=== PATIENT | male | born 1995 | race African-American/Black ===

== ENCOUNTER 2017-06-01 16:20 | Emergency (ER) | payer SELFPAY ==
--- NOTE | 2017-06-01 17:20 | ER ---
Nurse's Notes [facility] Name: Bertin Ferreira Age: 21 yrs Sex: Male : 1995 Arrival Date: 06/01/2017 Time: 16:23 Bed 15 Private MD: Diagnosis: Dental pain Presentation: 06/01 16:37 Presenting complaint: Patient states: "My teeth have been hurting for a while, but it lk1 got worser this morning.". Transition of care: patient was not received from another setting of care. Onset of symptoms was May 01, 2017. Care prior to arrival: None. 16:37 Method Of Arrival: Ambulatory lk1 16:37 Acuity: LIANA 5 lk1 Triage Assessment: 16:38 General: Appears in no apparent distress. Behavior is calm, cooperative, appropriate lk1 for age. Pain: Complains of pain in mouth Pain currently is 5 out of 10 on a pain scale. EENT: Reports pain in teeth in the morning when he wakes up, improves during the day, been happening almost a month. Historical: - Allergies: 16:38 No Known Allergies; lk1 - PMHx: 16:38 Asthma; lk1 - PSHx: 16:38 None; lk1 - Immunization history:: Adult Immunizations up to date. - Social history:: Smoking status: Patient uses tobacco products, smokes one pack cigarettes per day. Screenin:32 Abuse screen: Denies threats or abuse. Denies injuries from another. Nutritional jl7 screening: No deficits noted. Tuberculosis screening: No symptoms or risk factors identified. Fall Risk None identified. Assessment: 17:00 General: Appears in no apparent distress. uncomfortable, Behavior is calm, cooperative, jl7 appropriate for age. Pain: Complains of pain in upper right first bicuspid, upper right cuspid, upper left cuspid and upper left first bicuspid Pain currently is 5 out of 10 on a pain scale. Neuro: Level of Consciousness is awake, alert, obeys commands, Oriented to person, place, time, situation. Respiratory: Airway is patent Respiratory effort is even, unlabored, Respiratory pattern is regular, symmetrical. EENT: Oral mucosa is moist. Derm: Skin is pink, warm \\T\\ dry. Vital Signs: 16:39 BP 132 / 58; Pulse 79; Resp 14; Temp 98.5(O); Pulse Ox 99% on R/A; Weight 72.57 kg (R); lk1 Height 5 ft. 6 in. (167.64 cm) (R); Pain 5/10; 17:32 BP 130 / 60; Pulse 75; Resp 16 S; Pulse Ox 99% on R/A; jl7 16:39 Body Mass Index 25.82 (72.57 kg, 167.64 cm) lk1 ED Course: 16:23 Patient arrived in ED. rg4 16:37 Triage completed. lk1 16:39 Arm band placed on right wrist. lk1 16:45 Ila Kellogg FNP-C is PHCP. snw 16:45 Cheo Aguilar MD is Attending Physician. snw 17:23 Dora Adam, RN is Primary Nurse. jl7 17:32 Patient has correct armband on for positive identification. Bed in low position. Call jl7 light in reach. Side rails up X 1. Pulse ox on. NIBP on. 17:32 No provider procedures requiring assistance completed. Patient did not have IV access jl7 during this emergency room visit. Administered Medications: No medications were administered Outcome: 17:20 Discharge ordered by . snw 17:32 Discharged to home ambulatory. jl7 17:32 Condition: stable 17:32 Discharge instructions given to patient, Instructed on discharge instructions, follow up and referral plans. medication usage, Demonstrated understanding of instructions, follow-up care, medications, Prescriptions given X 2. 17:33 Patient left the ED. jl7 Signatures: Ila Kellogg FNP-C COMMERCIAL LOAN CLOSER-Csnw Cristine Gordon RN RN lk1 Sarah Sandoval 4 Dora Adam, KARYN RN jl7
--- NOTE | 2017-06-01 17:20 | EDPHYS ---
Physician Documentation [facility] Name: Bertin Ferreira Age: 21 yrs Sex: Male : 1995 Arrival Date: 06/01/2017 Time: 16:23 Bed 15 Private MD: ED Physician Cheo Aguilar HPI: 06/01 18:10 This 21 yrs old Black Male presents to ER via Ambulatory with complaints of Toothache. snw 18:10 The patient presents with pain. The problem is located in the upper left first bicuspid snw and upper left cuspid and upper right first bicuspid. Onset: The symptoms/episode began/occurred gradually. Duration: The symptoms are intermittent. Associated signs and symptoms: The patient has no apparent associated signs or symptoms. Severity of symptoms: At their worst the symptoms were moderate. The patient has experienced similar episodes in the past, multiple times, but today's symptoms are worse, more painful. The patient has not recently seen a physician. Historical: - Allergies: 16:38 No Known Allergies; lk1 - PMHx: 16:38 Asthma; lk1 - PSHx: 16:38 None; lk1 - Immunization history:: Adult Immunizations up to date. - Social history:: Smoking status: Patient uses tobacco products, smokes one pack cigarettes per day. ROS: 18:07 Constitutional: Negative for fever, chills, and weight loss, Eyes: Negative for injury, snw pain, redness, and discharge, ENT: Negative for injury, pain, and discharge, c/o intermittent upper teeth sensitivity and gingival bleeding Neck: Negative for injury, pain, and swelling, Cardiovascular: Negative for chest pain, palpitations, and edema, Respiratory: Negative for shortness of breath, cough, wheezing, and pleuritic chest pain, Abdomen/GI: Negative for abdominal pain, nausea, vomiting, diarrhea, and constipation, Back: Negative for injury and pain, : Negative for injury, bleeding, discharge, and swelling, MS/Extremity: Negative for injury and deformity, Skin: Negative for injury, rash, and discoloration, Neuro: Negative for headache, weakness, numbness, tingling, and seizure. Exam: 18:06 Constitutional: This is a well developed, well nourished patient who is awake, alert, snw and in no acute distress. Head/Face: Normocephalic, atraumatic. Eyes: Pupils equal round and reactive to light, extra-ocular motions intact. Lids and lashes normal. Conjunctiva and sclera are non-icteric and not injected. Cornea within normal limits. Periorbital areas with no swelling, redness, or edema. ENT: Nares patent. No nasal discharge, no septal abnormalities noted. Tympanic membranes are normal and external auditory canals are clear. Oropharynx with no redness, swelling, or masses, exudates, or evidence of obstruction, uvula midline. Mucous membranes moist. Neck: Trachea midline, no thyromegaly or masses palpated, and no cervical lymphadenopathy. Supple, full range of motion without nuchal rigidity, or vertebral point tenderness. No Meningismus. Chest/axilla: Normal chest wall appearance and motion. Nontender with no deformity. No lesions are appreciated. Cardiovascular: Regular rate and rhythm with a normal S1 and S2. No gallops, murmurs, or rubs. Normal PMI, no JVD. No pulse deficits. Respiratory: Lungs have equal breath sounds bilaterally, clear to auscultation and percussion. No rales, rhonchi or wheezes noted. No increased work of breathing, no retractions or nasal flaring. Abdomen/GI: Soft, non-tender, with normal bowel sounds. No distension or tympany. No guarding or rebound. No evidence of tenderness throughout. Back: No spinal tenderness. No costovertebral tenderness. Full range of motion. Skin: Warm, dry with normal turgor. Normal color with no rashes, no lesions, and no evidence of cellulitis. MS/ Extremity: Pulses equal, no cyanosis. Neurovascular intact. Full, normal range of motion. Neuro: Awake and alert, GCS 15, oriented to person, place, time, and situation. Cranial nerves II-XII grossly intact. Motor strength 5/5 in all extremities. Sensory grossly intact. Cerebellar exam normal. Normal gait. Vital Signs: 16:39 BP 132 / 58; Pulse 79; Resp 14; Temp 98.5(O); Pulse Ox 99% on R/A; Weight 72.57 kg (R); lk1 Height 5 ft. 6 in. (167.64 cm) (R); Pain 5/10; 17:32 BP 130 / 60; Pulse 75; Resp 16 S; Pulse Ox 99% on R/A; jl7 16:39 Body Mass Index 25.82 (72.57 kg, 167.64 cm) lk1 [facility]: 16:45 Patient medically screened. [facility] 18:10 Data reviewed: vital signs, nurses notes. Data interpreted: Pulse oximetry: on room air snw is 99 %. Interpretation: normal. Counseling: I had a detailed discussion with the patient and/or guardian regarding: the historical points, exam findings, and any diagnostic results supporting the discharge/admit diagnosis, the need for outpatient follow up, to return to the emergency department if symptoms worsen or persist or if there are any questions or concerns that arise at home, smoking cessation. Special discussion: Based on the history and exam findings, there is no indication for further emergent testing or inpatient evaluation. I discussed with the patient/guardian the need to see a dentist for further evaluation of the symptoms. I discussed with the patient/guardian the need to see the primary care provider for further evaluation of the symptoms. Administered Medications: No medications were administered Disposition: 06/02 07:33 Co-signature as Attending Physician, Cheo Aguilar MD I agree with the assessment and [facility] plan of care. Disposition: 06/01/17 17:20 Discharged to Home. Impression: Dental pain. - Condition is Stable. - Discharge Instructions: Dental Pain, Smoking Cessation, Smoking Hazards, Smoking Cessation, Tips For Success, Dental Mouth Guards. - Prescriptions for chlorhexidine gluconate 0.12 % Mucous Membrane mouthwash - place 15 milliliter by MUCOUS MEMBRANE route 2 times per day after brushing teeth, swish in mouth for 30 seconds then spit out; 460 milliliter. Diclofenac Sodium 75 mg Oral Tablet Sustained Release - take 1 tablet by ORAL route 2 times per day; 30 tablet. - Work release form, Medication Reconciliation Form, Thank You Letter, Antibiotic Education, Prescription Opioid Use form. - Follow up: Private Physician; When: 2 - 3 days; Reason: Recheck today's complaints, Continuance of care, Re-evaluation by your physician. Follow up: Emergency Department; When: As needed; Reason: Worsening of condition. - Notes: Toothpaste for sensitive teeth Signatures: Cheo Aguilar MD MD cha Therrien, Shelly, SKEIN MERCERIZING MACHINE OPERATOR-C SKEIN MERCERIZING MACHINE OPERATOR-Csnw Cristine Gordon RN RN lk1 Dora Adam RN RN jl7
== END 2017-06-01 17:33 | disposition home or self-care (01) ==
LOC: ER 16:20
DX: K08.89 Other specified disorders of teeth and supporting structures (principal); F17.210 Nicotine dependence, cigarettes, uncomplicated
CPT/HCPCS: 99283

== ENCOUNTER 2017-06-30 19:46 | Emergency (ER) | payer SELFPAY ==
[2017-06-30] MEDS ORDERED: ALBUTEROL 2.5 MG/3 ML NEB SOL ONE (20:38)
--- NOTE | 2017-06-30 20:59 | RAD REPORT ---
EXAM DESCRIPTION: RAD - Chest Pa And Lat (2 Views) - 06/30/2017 8:51 pm CLINICAL HISTORY: Shortness of breath COMPARISON: October 2007 TECHNIQUE: PA and lateral views of the chest were obtained. FINDINGS: The lungs are underinflated. No peribronchial thickening. No focal consolidation to suspec t bacterial pneumonia. Lung markings are mildly prominent. Heart size is normal and central vascula ture is within normal limits. No pleural effusion or pneumothorax seen. No acute bony finding noted . No aortic abnormality. IMPRESSION: Minimal viral infiltrate or reactive airway disease pattern.
[2017-06-30] MEDS ORDERED: DEXAMETHASONE 4 MG TAB ONE (21:14)
[2017-06-30] MEDS ORDERED: AZITHROMYCIN 250 MG TAB ONE (21:14)
[2017-06-30] MEDS ORDERED: ONDANSETRON 4 MG (ODT) TAB ONE (21:14)
--- NOTE | 2017-06-30 21:54 | EDPHYS ---
Physician Documentation [facility] Name: Bertin Ferreira Age: 21 yrs Sex: Male : 1995 Arrival Date: 06/30/2017 Time: 19:47 Bed 14 Private MD: ED Physician Erwin Lopez HPI: 06/30 21:13 This 21 yrs old Black Male presents to ER via Ambulatory with complaints of Asthma snw Exacerbation, Fever. 21:13 The patient presents to the emergency department with wheezing, Current therapy: snw albuterol inhaler, that began without any particular precipitating event, the patient was reported to have audible wheezing, chest congestion, productive cough. Onset: The symptoms/episode began/occurred suddenly, 3 day(s) ago, and became persistent. Associated signs and symptoms: Pertinent positives: headache. Severity of symptoms: At their worst the symptoms were moderate. It is unknown whether or not the patient has had similar symptoms in the past. The patient has not recently seen a physician. Historical: - Allergies: 20:17 No Known Allergies; fc - Home Meds: 20:17 None [Active]; fc - PMHx: 20:17 Asthma; fc - PSHx: 20:17 None; fc - Immunization history:: Last tetanus immunization: up to date. - Social history:: Smoking status: Patient uses tobacco products, smokes one pack cigarettes per day. Patient/guardian denies using alcohol, street drugs. ROS: 21:13 Eyes: Negative for injury, pain, redness, and discharge, ENT: Negative for injury, snw pain, and discharge, Neck: Negative for injury, pain, and swelling, Cardiovascular: Negative for chest pain, palpitations, and edema. 21:13 Back: Negative for injury and pain, : Negative for injury, bleeding, discharge, and swelling, MS/Extremity: Negative for injury and deformity, Skin: Negative for injury, rash, and discoloration. 21:13 Constitutional: Positive for body aches, fatigue, malaise, poor PO intake. 21:13 Respiratory: Positive for cough, wheezing. 21:13 Abdomen/GI: Positive for nausea. 21:13 Neuro: Positive for weakness. Exam: 20:58 Constitutional: This is a well developed, well nourished patient who is awake, alert, snw and in no acute distress. Head/Face: Normocephalic, atraumatic. Eyes: Pupils equal round and reactive to light, extra-ocular motions intact. Lids and lashes normal. Conjunctiva and sclera are non-icteric and not injected. Cornea within normal limits. Periorbital areas with no swelling, redness, or edema. ENT: Nares patent. No nasal discharge, no septal abnormalities noted. Tympanic membranes are normal and external auditory canals are clear. Oropharynx with no redness, swelling, or masses, exudates, or evidence of obstruction, uvula midline. Mucous membranes moist. Neck: Trachea midline, no thyromegaly or masses palpated, and no cervical lymphadenopathy. Supple, full range of motion without nuchal rigidity, or vertebral point tenderness. No Meningismus. Chest/axilla: Normal chest wall appearance and motion. Nontender with no deformity. No lesions are appreciated. 20:58 Abdomen/GI: Soft, non-tender, with normal bowel sounds. No distension or tympany. No guarding or rebound. No evidence of tenderness throughout. Back: No spinal tenderness. No costovertebral tenderness. Full range of motion. Skin: Warm, dry with normal turgor. Normal color with no rashes, no lesions, and no evidence of cellulitis. MS/ Extremity: Pulses equal, no cyanosis. Neurovascular intact. Full, normal range of motion. Neuro: Awake and alert, GCS 15, oriented to person, place, time, and situation. Cranial nerves II-XII grossly intact. Motor strength 5/5 in all extremities. Sensory grossly intact. Cerebellar exam normal. Normal gait. 20:58 Cardiovascular: Rate: tachycardic. 20:58 Respiratory: the patient does not display signs of respiratory distress, Respirations: normal, Breath sounds: are clear throughout. Vital Signs: 20:17 BP 139 / 84; Pulse 102; Resp 20; Temp 100(TE); Pulse Ox 99% on R/A; Weight 70.31 kg fc (R); Height 5 ft. 6 in. (167.64 cm) (R); Pain 9/10; 21:40 BP 151 / 92; Pulse 106; Resp 18; Temp 99.6(O); Pulse Ox 97% on R/A; tl2 20:17 Body Mass Index 25.02 (70.31 kg, 167.64 cm) MDM: 20:38 Patient medically screened. snw 21:56 Data reviewed: vital signs, nurses notes. Data interpreted: Pulse oximetry: on room air snw is 97 %. Interpretation: normal. Counseling: I had a detailed discussion with the patient and/or guardian regarding: the historical points, exam findings, and any diagnostic results supporting the discharge/admit diagnosis, the presence of at least one elevated blood pressure reading (>120/80) during this emergency department visit, radiology results, the need for outpatient follow up, to return to the emergency department if symptoms worsen or persist or if there are any questions or concerns that arise at home. Special discussion: I have referred the patient to see his PCP for further evaluation of high blood pressure. Based on the history and exam findings, there is no indication for further emergent testing or inpatient evaluation. 06/30 20:32 Order name: Chest Pa And Lat (2 Views) XRAY; Complete Time: 21:02 snw Administered Medications: 20:46 Drug: Albuterol 2.5 mg Route: Inhalation; tl2 21:18 Drug: Decadron 8 mg Route: PO; tl2 22:08 Follow up: Response: No adverse reaction tl2 21:18 Drug: Zithromax 500 mg Route: PO; tl2 22:08 Follow up: Response: No adverse reaction tl2 21:18 Drug: Zofran 4 mg Route: PO; tl2 22:09 Follow up: Response: No adverse reaction tl2 22:09 Drug: Tussionex Pennkinetic ER 5 ml Route: PO; tl2 22:11 Follow up: Response: No adverse reaction; Medication administered at discharge. tl2 Disposition: 07/01 19:20 Co-signature as Attending Physician, Erwin Lopez MD. Disposition: 06/30/17 21:54 Discharged to Home. Impression: Fever presenting with conditions classified elsewhere, Unspecified asthma with (acute) exacerbation. - Condition is Stable. - Discharge Instructions: Asthma, Adult, Hypertension, How to Use an Inhaler, Managing Your High Blood Pressure. - Prescriptions for Prednisone 20 mg Oral Tablet - take 1 tablet by ORAL route 2 times per day for 5 days; 10 tablet. Albuterol Sulfate 90 mcg/actuation - inhale 1-2 puff by INHALATION route every 4-6 hours; 1 Inhaler. Zithromax 500 mg Oral Tablet - take 1 tablet by ORAL route once daily for 5 days; 5 tablet. - Work release form, Medication Reconciliation Form, Thank You Letter, Antibiotic Education, Prescription Opioid Use form. - Follow up: Private Physician; When: 1 - 2 days; Reason: Recheck today's complaints, Continuance of care, Re-evaluation by your physician. Follow up: Emergency Department; When: As needed; Reason: Worsening of condition. Signatures: Dispatcher [employer] EDAK Ila Kellogg, AVE-C MACHINE TECH-Csnw Bettina Camejo RN RN Nicole Hoang RN RN tl2 Erwin Lopez MD MD gs Corrections: (The following items were deleted from the chart) 06/30 22:11 21:54 06/30/2017 21:54 Discharged to Home. Impression: Fever presenting with conditions tl2 classified elsewhere; Unspecified asthma with (acute) exacerbation. Condition is Stable. Forms are Medication Reconciliation Form, Thank You Letter, Antibiotic Education, Prescription Opioid Use. Follow up: Private Physician; When: 1 - 2 days; Reason: Recheck today's complaints, Continuance of care, Re-evaluation by your physician. Follow up: Emergency Department; When: As needed; Reason: Worsening of condition. snw
--- NOTE | 2017-06-30 21:54 | ER ---
Nurse's Notes [facility] Name: Bertin Ferreira Age: 21 yrs Sex: Male : 1995 Arrival Date: 06/30/2017 Time: 19:47 Bed 14 Private MD: Diagnosis: Fever presenting with conditions classified elsewhere;Unspecified asthma with (acute) exacerbation Presentation: 06/30 20:14 Presenting complaint: Patient states: that he is having an asthma attack that started 2 fc days ago. Also has cough with yellow sputum, nasal congestion, sore throat and headache. Transition of care: patient was not received from another setting of care. Onset of symptoms was April 28, 2017. Initial Sepsis Screen: Does the patient meet any 2 criteria? HR > 90 bpm. Yes Does the patient have a suspected source of infection? Yes: Productive cough/pneumonia. Care prior to arrival: Medication(s) given: Tylenol, last taken last night. 20:14 Method Of Arrival: Ambulatory 20:14 Acuity: LIANA 3 Triage Assessment: 20:18 General: Appears uncomfortable, slender, Behavior is calm, cooperative, appropriate for age. Pain: Complains of pain in headache Pain currently is 9 out of 10 on a pain scale. Quality of pain is described as aching, throbbing, Pain began gradually, Is continuous. EENT: Reports nasal congestion nasal discharge that is yellow pain when swallowing. Neuro: Level of Consciousness is awake, alert, obeys commands, Oriented to person, place, time, situation. Cardiovascular: No deficits noted. Respiratory: Reports cough that is pain with cough Onset: The symptoms/episode began/occurred gradually, the patient has mild shortness of breath. GI: No deficits noted. : No deficits noted. Derm: Skin is pink, warm \T\ dry. Musculoskeletal: Circulation, motion, and sensation intact. Capillary refill < 3 seconds, Range of motion: intact in all extremities. Historical: - Allergies: 20:17 No Known Allergies; fc - Home Meds: 20:17 None [Active]; fc - PMHx: 20:17 Asthma; fc - PSHx: 20:17 None; fc - Immunization history:: Last tetanus immunization: up to date. - Social history:: Smoking status: Patient uses tobacco products, smokes one pack cigarettes per day. Patient/guardian denies using alcohol, street drugs. Screenin:42 Abuse screen: Denies threats or abuse. Nutritional screening: No deficits noted. tl2 Tuberculosis screening: No symptoms or risk factors identified. Fall Risk None identified. Assessment: 20:42 General: Appears in no apparent distress. uncomfortable, Behavior is calm, cooperative, tl2 appropriate for age. Pain: Denies pain. Neuro: Level of Consciousness is awake, alert, obeys commands, Oriented to person, place, time, situation. Cardiovascular: Denies chest pain, Heart tones S1 S2 present. Respiratory: Reports shortness of breath cough that is Airway is patent Respiratory effort is even, labored, Respiratory pattern is regular, symmetrical, Breath sounds with wheezes bilaterally. GI: Reports nausea. : No signs and/or symptoms were reported regarding the genitourinary system. Derm: Skin is normal. 21:40 Reassessment: Patient appears in no apparent distress at this time. Patient and/or tl2 family updated on plan of care and expected duration. Pain level reassessed. Patient is alert, oriented x 3, equal unlabored respirations, skin warm/dry/pink. 22:09 Reassessment: Patient appears in no apparent distress at this time. Patient and/or tl2 family updated on plan of care and expected duration. Pain level reassessed. Patient is alert, oriented x 3, equal unlabored respirations, skin warm/dry/pink. Pt verbalized understanding of discharge instructions, need for follow up and prescription usage. Vital Signs: 20:17 BP 139 / 84; Pulse 102; Resp 20; Temp 100(TE); Pulse Ox 99% on R/A; Weight 70.31 kg fc (R); Height 5 ft. 6 in. (167.64 cm) (R); Pain 9/10; 21:40 BP 151 / 92; Pulse 106; Resp 18; Temp 99.6(O); Pulse Ox 97% on R/A; tl2 20:17 Body Mass Index 25.02 (70.31 kg, 167.64 cm) ED Course: 19:47 Patient arrived in ED. ds1 20:16 Triage completed. fc 20:17 Arm band placed on left wrist. Patient placed in an exam room, on a stretcher. fc 20:32 [facility] Kellogg [facility]C [facility]. snw 20:32 Erwin Lopez MD is Attending Physician. snw 20:41 Nicole Hoang, KARYN is Primary Nurse. tl2 20:42 Patient has correct armband on for positive identification. Bed in low position. Call tl2 light in reach. Side rails up X 1. 20:48 Patient moved to radiology via wheelchair. ml 20:48 X-ray completed. Patient tolerated procedure well. ml 20:48 Patient moved back from radiology. ml 20:49 Chest Pa And Lat (2 Views) XRAY In Process Unspecified. EDMS 22:09 No provider procedures requiring assistance completed. Patient did not have IV access tl2 during this emergency room visit. Administered Medications: 20:46 Drug: Albuterol 2.5 mg Route: Inhalation; tl2 21:18 Drug: Decadron 8 mg Route: PO; tl2 22:08 Follow up: Response: No adverse reaction tl2 21:18 Drug: Zithromax 500 mg Route: PO; tl2 22:08 Follow up: Response: No adverse reaction tl2 21:18 Drug: Zofran 4 mg Route: PO; tl2 22:09 Follow up: Response: No adverse reaction tl2 22:09 Drug: Tussionex Pennkinetic ER 5 ml Route: PO; tl2 22:11 Follow up: Response: No adverse reaction; Medication administered at discharge. tl2 Outcome: 21:54 Discharge ordered by . snw 22:09 Discharged to home ambulatory, with family. tl2 22:09 Condition: stable 22:09 Discharge instructions given to patient, Instructed on discharge instructions, follow up and referral plans. medication usage, Demonstrated understanding of instructions, follow-up care, medications, Prescriptions given X 3. 22:11 Patient left the ED. tl2 Signatures: Dispatcher [employer] EDID Ila Kellogg, PAVING FOREMAN-C PAVING FOREMAN-Bettina Tim RN Clemencia Luna ds1 Ivana Estrada Nicole Hoang, KARYN RN tl2
[2017-06-30] MEDS ORDERED: HYDROCODONE/CHLORPHEN 5 ML/OSYR ONE (22:04)
== END 2017-06-30 22:11 | disposition home or self-care (01) ==
LOC: ER 19:46
DX: J45.901 Unspecified asthma with (acute) exacerbation (principal); R50.9 Fever, unspecified
CPT/HCPCS: 71046; 99284